=== PATIENT | female | born 1985 | race Hispanic/Latino ===

== ENCOUNTER 2017-09-29 16:07 | Outpatient (CLI) | payer BC, OTHER ==
--- NOTE | 2017-09-29 21:29 | ULT ---
ULTRASOUND OBSTETRICAL COMPLETE: 09/29/17 HISTORY: 32-year-old female in second trimester of . Evaluate anatomy, and determine size and d ates. FINDINGS: number: [place]. lie: Breech. Maternal cervix: At least 4 cm in length, and closed. Placenta: Posterior. No placenta previa. Amniotic fluid volume: DIVYA = 8.5 cm. heart rate: 145 bpm The following anatomy is visualized, with no evidence of anomalies: Head, lateral ventricles, cerebellum, nose and lips, spine, upper limbs, lower limbs, four chamber he art, umbilical cord, cord insertion, stomach, kidneys, and bladder. biometry: Head circumference (HC): 16.2 cm 19w 0d Biparietal diameter (BPD): 4.3 cm 18w 6d Abdominal circumference (AC): 12.7 cm 18w 2d Femur length (FL): 2.6 cm 18w 0d Average ultrasound age (AUA): 18w 4d Estimated date of delivery (LC): 02/26/18. Last menstrual period (LMP): 05/20/17. Gestational age by LMP: 18w 6d Estimated weight (EFW): 230 g +/- 34 g (0 lb. 8 oz. +/- 1 oz.) IMPRESSION: 1. Live second trimester intrauterine gestation. 2. Estimated gestational age of 18 weeks, 4 days. 3. Breech lie. 4. No anatomical abnormalities. nova [] POS: [facility]
== END 2017-09-29 16:08 | disposition home or self-care (01) ==
LOC: ULT 16:07
PROVIDERS: ATTEND Family Medicine
DX: Z34.82 Encounter for supervision of other normal pregnancy, second trimester (principal); Z3A.18 18 weeks gestation of pregnancy
CPT/HCPCS: 76805

== ENCOUNTER 2018-01-14 20:14 | Day surgery (SDC) | payer BC, OTHER ==
[2018-01-14 20:57] VITALS: BP 134/86; TEMP 98.8
--- NOTE | 2018-01-14 21:02 | PDOC.LDHP ---
Labor and Delivery H&P HPI: 32 y/o at 34w1d, patient of Dr. Brenda Rosario, presents with left sided back pain that started after going to eat dinner. Pain was constant, sharp, and has improved since arrival. More comfortable when lying on left side and when rubs her back. Denies abdominal pain, N/V, changes in bowel habits. Denies any VB, LOF, ctx, UTI sx, or PIH sx. +FM. ROS neg for HEENT, cv, pulm, gi, gu, neuro, psych, skin, musculoskeletal or constitutional symptoms other than mentioned above. Current gestational age (weeks): 34 Dating criteria: second trimester ultrasound OB History Details: 2 prior LTCS Current complications: hypertension (on Labetalol 100mg BID) Current medications: pre- vitamins, other (Labetalol 100mg BID, aspirin 81mg) Previous surgical history: low tranverse CS (x2), cholecystectomy Allergies/Adverse Reactions: Allergies Allergy/AdvReac Type Severity Reaction Status Date / Time No Known Allergies Allergy Verified 01/14/18 20:58 Social history: none - Physical Exam Vital signs reviewed and normal: yes General: NAD, resting Lungs: nonlabored breathing Abdomen: gravid (soft, NTTP. Left paraspinous muscles tight and mildly painful on palpation.) Extremeties: no edema FHT: category 1 (145, mod variability, + accels, no decels) - OB Labs Blood type: O RH: positive - Assessment 32 y/o at 34w1d with musculoskeletal discomforts of . status reassuring with reactive NST. - Plan -: D/c home with precautions. Advised to keep all appointments. Comfort measures discussed.
== END 2018-01-14 20:25 | disposition home or self-care (01) ==
LOC: L&D/OP 20:14
PROVIDERS: ATTEND Family Medicine
DX: O99.89 Other specified diseases and conditions complicating pregnancy, childbirth and the puerperium (principal); M54.9 Dorsalgia, unspecified; O16.3 Unspecified maternal hypertension, third trimester; Z3A.34 34 weeks gestation of pregnancy
CPT/HCPCS: 99282

== ENCOUNTER 2018-02-13 05:55 | Inpatient (IN) | payer BC, OTHER ==
[2018-02-13] MEDS ORDERED: CEFAZOLIN/Water 2 GM/20 ML SYRINGE SLOW IVP SCH (06:12)
[2018-02-13] MEDS ORDERED: Lactated Ringer's 1,000 ML IV SCH ×2 (06:12→11:32)
[2018-02-13] MEDS ORDERED: Promethazine HCl 25 MG/ML VIAL IM PRN ×2 (06:12→07:40)
[2018-02-13] MEDS ORDERED: Ondansetron HCl/PF 4 MG/2 ML Vial IVP PRN ×4 (06:12→11:32)
[2018-02-13] MEDS ORDERED: Bicitra 30 ML UDCUP PO SCH (06:12)
[2018-02-13 06:43] VITALS: BMI 31.6
[2018-02-13 06:44] LABS: Hemoglobin 14.2 g/dL (12.0-16.0); Mean Corpuscular HGB CONC 35.7 g/dL (32.0-36.0); Mean Corpuscular Volume 86.9 fL (78.0-98.0); Mean Platelet Volume 9.6 fL (7.4-10.4); Platelet Count 196 thou/uL (130-400); RBC Distribution Width 12.1 % (11.5-14.5); Red Blood Cell (RBC) Count 4.59 mill/uL (4.20-5.40)
[2018-02-13] MEDS ORDERED: Ondansetron HCl/PF 4 MG/2 ML Vial ONE (07:08)
[2018-02-13] MEDS ORDERED: Lidocaine 1% PF 5 ML VIAL ONE (07:08)
[2018-02-13] MEDS ORDERED: Oxytocin 10 UNITS/ML VIAL ONE (07:08)
[2018-02-13] MEDS ORDERED: Morphine PF 1 MG/ML SYR ONE (07:08)
[2018-02-13] MEDS ORDERED: PHENYLEPHRINE-NS 100 MCG/ML 10 ML SYRINGE ONE (07:08)
[2018-02-13] MEDS ORDERED: Bupivacaine 0.75% W/DEXTROSE 8.25% 2 ML AMP ONE (07:11)
[2018-02-13 07:20] LABS: HBSAg Index 0.22 S/CO (0-0.99); Hep B Surf Ag Non-Reactive S/CO (NonReactive); Syphilis Antibody Nonreactive (Nonreactive); Syphilis Antibody Index 0.03 S/CO (<1.00 Non-Reactive)
[2018-02-13] MEDS ORDERED: Eucerin (Mineral Oil/Petrolatum,White) 30 gm Jar TOP PRN (07:40)
[2018-02-13] MEDS ORDERED: diphenhydrAMINE 50 MG/ML VIAL IVP PRN (07:40)
[2018-02-13] MEDS ORDERED: Naloxone HCl 0.4 mg/ml Vial IV PRN (07:40)
[2018-02-13] MEDS ORDERED: Promethazine HCl 25 MG SUPP PR PRN (07:40)
[2018-02-13] MEDS ORDERED: Ketorolac Tromethamine 30 MG/ML VIAL IVP PRN (07:40)
[2018-02-13] MEDS ORDERED: HYDROmorphone 2 MG/ML VIAL SLOW IVP PRN (07:40)
[2018-02-13] MEDS ORDERED: Naloxone HCl 0.4 mg/ml Vial IVP PRN ×2 (07:40)
[2018-02-13] MEDS ORDERED: Meperidine HCl/PF 25 MG/ML VIAL SLOW IVP PRN (07:40)
[2018-02-13] MEDS ORDERED: Ketorolac Tromethamine 30 MG/ML VIAL IVP SCH (07:45)
[2018-02-13] MEDS ORDERED: Communication Order-Pharmacy FS SCH (07:45)
[2018-02-13 08:03] LABS: ALT (SGPT) 9 U/L (8-55); AST (SGOT) 18 U/L (5-34); Albumin 3.4 g/dL (3.5-5.0); Alkaline Phosphatase 185 U/L (40-150); Anion Gap 16 mmol/L (10-20); BUN (Urea Nitrogen) 10 mg/dL (7.0-18.7); Bilirubin, Total 0.4 mg/dL (0.2-1.2); Calc. Creatinine Clearance 156 mL/min (70-130); Calcium 9.2 mg/dL (7.8-10.44); Carbon Dioxide 16 mmol/L (22-29); Chloride 110 mmol/L (98-107); Estimated GFR-MDRD Greater than 90; Globulin 2.6 g/dL (2.4-3.5); Glucose 93 mg/dL (70-105); Potassium 3.9 mmol/L (3.5-5.1); Sodium 138 mmol/L (136-145)
--- NOTE | 2018-02-13 08:40 | OP ---
DATE OF PROCEDURE: 02/13/2018 PREOPERATIVE DIAGNOSES: Term intrauterine with previous section x2 and chronic hy pertension. POSTOPERATIVE DIAGNOSES: Term intrauterine with previous section x2 and chronic h ypertension, status post delivery. PROCEDURE: Repeat low transverse section. SURGEON: Brenda Rosario M.D. INTEGRATED CIRCUITS INSPECTOR: Ariel Rosario M.D. ANESTHESIA: Spinal anesthetic. COMPLICATIONS: None. PROCEDURE IN DETAIL: After adequate spinal anesthetic, the patient was placed in supine position. A Acosta catheter was placed in the bladder. Abdomen was prepped and draped in the usual sterile techn ique. A Pfannenstiel incision was made through the old scar. Subcutaneous tissue with sharp dissect ion, fascia with sharp dissection and peritoneum opened with sharp and blunt dissection. It was note d that the abdomen was filled with a gravid uterus. A large Juan O retractor was placed and a low transverse incision was made on the uterus. Membranes were ruptured. Clear fluid was encountered an d a viable female was delivered from vertex presentation without difficulty. Infant breathed and cried spontaneously. Noted there was cord around the neck x1. After approximately 30 seconds th e umbilical cord was clamped. Infant had been dried and bulb suction and was handed to care of the n eonatology team. Cord blood was obtained. The placenta was delivered manually, appeared intact. A wet lap was used to wipe clean the uterus and ring forceps grasped edges of the hysterotomy, which wa s then closed in continuous fashion using 0 Monocryl. It was noted that there were no bleeders and h emostasis was adequate. Inspection of the gutters again without bleeding. The Jaun O retractor wa s removed and the peritoneum was then closed in continuous fashion using 2-0 plain suture, and the fa scia was closed in continuous fashion using 0 Vicryl suture. Sponge and instrument counts were corre ct. A few bleeders were cauterized on the subcutaneous tissue and this was reapproximated with 2-0 p stacey suture in continuous fashion. The skin was then closed using patti. Again, sponge, and instr ument counts were correct. There was minimal bleeding. The patient tolerated the procedure well and went to the recovery room in good condition with quantitative blood loss at 255. The baby is a viab le female, weight 6 pounds 6 ounces, Apgars 8 at 1 minute, 9 at 5 minutes, in level 1 nursery in good condition.
[2018-02-13] MEDS ORDERED: NS / Oxytocin 40 units/1000ml 0 ML ONE (08:59)
[2018-02-13] MEDS ORDERED: NS / Oxytocin 40 units/1000ml 1,000 ML ONE (09:00)
[2018-02-13] MEDS ORDERED: Lanolin Ointment 7 GM TUBE TOP PRN (11:32)
[2018-02-13] MEDS ORDERED: diphenhydrAMINE 25 MG CAP PO PRN (11:32)
[2018-02-13] MEDS ORDERED: Acetaminophen 325 MG TAB PO PRN (11:32)
[2018-02-13] MEDS ORDERED: Acetaminophen/Codeine 30-300mg Tablet PO PRN (20:00)
[2018-02-13] MEDS ORDERED: HYDROcodone/Acetaminophen 5/325 mg Tablet PO PRN (20:00)
[2018-02-13] MEDS: Docusate Calcium (SURFAK) 240 MG CAP PO SCH (20:25)
[2018-02-13] MEDS: Simethicone Chewable 80 MG TAB PO PRN (20:25)
[2018-02-13] MEDS: Labetalol 100 MG TAB PO SCH (20:25)
[2018-02-14 05:36] LABS: Hemoglobin 13.3 g/dL (12.0-16.0); Mean Corpuscular HGB CONC 34.9 g/dL (32.0-36.0); Mean Corpuscular Hemoglobin 30.9 pg (27.0-31.0); Mean Corpuscular Volume 88.4 fL (78.0-98.0); Mean Platelet Volume 9.3 fL (7.4-10.4); Platelet Count 153 thou/uL (130-400); RBC Distribution Width 12.2 % (11.5-14.5); Red Blood Cell (RBC) Count 4.31 mill/uL (4.20-5.40); White Blood Cell (WBC) Count 9.6 thou/uL (4.8-10.8)
[2018-02-14] MEDS: Ibuprofen 800 MG TAB PO SCH ×3 (05:53→20:56)
[2018-02-14] MEDS: Labetalol 100 MG TAB PO SCH ×2 (08:09→20:56)
[2018-02-14] MEDS: Prenatal Vitamin 1 TAB PO SCH (08:09)
[2018-02-14] MEDS: Docusate Calcium (SURFAK) 240 MG CAP PO SCH ×2 (08:10→20:56)
[2018-02-14] MEDS: Simethicone Chewable 80 MG TAB PO PRN (20:57)
[2018-02-15] MEDS: Ibuprofen 800 MG TAB PO SCH ×2 (05:16→14:06)
[2018-02-15] MEDS: Docusate Calcium (SURFAK) 240 MG CAP PO SCH (08:29)
[2018-02-15] MEDS: Labetalol 100 MG TAB PO SCH (08:29)
[2018-02-15] MEDS: Prenatal Vitamin 1 TAB PO SCH (08:30)
[2018-02-15 09:01] VITALS: BP 134/82; TEMP 98.8
== END 2018-02-15 20:30 | disposition home or self-care (01) | DRG 765 ==
LOC: L&D 05:55 → 3SW 10:41 → EDSTATUS 02-24 12:17
PROVIDERS: ADMIT Family Medicine; ATTEND Family Medicine
PROC: 10D00Z1 Extraction of Products of Conception, Low, Open Approach (ICD-10-PCS; principal; 2018-02-13)
PROC: 4A0HXCZ Measurement of Products of Conception, Cardiac Rate, External Approach (ICD-10-PCS; 2018-02-13)
DX: O34.211 Maternal care for low transverse scar from previous cesarean delivery (principal); O10.02 Pre-existing essential hypertension complicating childbirth; Z3A.38 38 weeks gestation of pregnancy; Z37.0 Single live birth
CPT/HCPCS: 36415; 51702; 80053; 85027; 86780; 86850; 86900; 86901; 87340; J2001; J2274; J2405; J2590; J3490

== ENCOUNTER 2023-11-28 15:05 | Emergency (ER) | payer BC ==
[~2023-11-28 15:05] MED LIST: Iopamidol-370 76% 500 ML MDV (1 ML CHARGE) ONE
[2023-11-28 15:50] LABS: #Basophils 0.03 10x3/uL (0.0-0.2); %Basophils 0.4 % (0.0-1.0); %Eosinophils 0.4 % (0.0-10.0); %Lymphocytes 19.3 % (21.0-51.0); %Monocytes 6.7 % (0.0-10.0); Hematocrit 45.1 % (36.0-47.0); Hemoglobin 16.1 g/dL (12.0-16.0); Mean Corpuscular HGB CONC 35.7 g/dL (32.0-36.0); Mean Corpuscular Hemoglobin 32.5 pg (27.0-31.0); Mean Corpuscular Volume 91.1 fL (78.0-98.0); Mean Platelet Volume 10.3 fL (7.4-10.4); Platelet Count 257 10x3/uL (130-400); RBC Distribution Width 12.2 % (11.5-14.5); Red Blood Cell (RBC) Count 4.95 mill/uL (4.20-5.40)
[2023-11-28 15:55] LABS: BHCG - Serum Negative (NEGATIVE); Pregs Control Background? CLEAR/WHITE (CLR/WHITE); Pregs Control Bar Appear? YES (CONTROL BAR)
[2023-11-28 15:59] LABS: ALT (SGPT) 25 U/L (8-55); AST (SGOT) 22 U/L (5-34); Albumin 4.3 g/dL (3.5-5.0); Alkaline Phosphatase 99 U/L (40-110); Anion Gap 16 mmol/L (10-20); BUN (Urea Nitrogen) 10 mg/dL (7.0-18.7); Bilirubin, Total 0.9 mg/dL (0.2-1.2); Calc. Creatinine Clearance 0 mL/min (70-130); Calcium 9.7 mg/dL (7.8-10.44); Carbon Dioxide 23 mmol/L (22-29); Chloride 105 mmol/L (98-107); Estimated GFR 89; Globulin 3.4 g/dL (2.4-3.5); Glucose 154 mg/dL (70-105); Potassium 3.6 mmol/L (3.5-5.1); Protein, Total 7.7 g/dL (6.0-8.3); Sodium 140 mmol/L (136-145)
[2023-11-28 16:01] LABS: INR-International Normal Ratio 0.9; PTT 26.2 sec (22.9-36.1); Prothrombin Time 12.1 sec (12.0-14.7)
[2023-11-28 16:04] LABS: Troponin I Less than 0.010 ng/mL (< 0.028)
[2023-11-28] MEDS ORDERED: Aspirin 325 MG TAB ONE (16:46)
[2023-11-28] MEDS ORDERED: Clopidogrel Bisulfate 300 MG TAB ONE (16:47)
== END 2023-11-28 17:54 | disposition short-term general hospital (02) ==
LOC: ERS 15:05
DX: I66.02 Occlusion and stenosis of left middle cerebral artery (principal)
CPT/HCPCS: 36416; 70496; 70498; 80053; 84484; 84703; 85025; 85610; 85730; 93005; 99292; Q9967

== ENCOUNTER 2024-01-06 07:00 | Outpatient (CLI) | payer BC | END 2024-01-06 07:01 | disposition home or self-care (01) | LOC: BICULT 07:00 | PROVIDERS: ATTEND Family Medicine | DX: E04.1 Nontoxic single thyroid nodule (principal); E03.4 Atrophy of thyroid (acquired) | CPT/HCPCS: 76536 ==

== ENCOUNTER 2024-07-16 09:28 | Emergency (ER) | payer BC ==
[2024-07-16 10:34] LABS: #Basophils Less than 0.03 10x3/uL (0.0-0.2); %Basophils 0.3 % (0.0-1.0); %Eosinophils 1.3 % (0.0-10.0); %Lymphocytes 14.9 % (21.0-51.0); %Monocytes 6.6 % (0.0-10.0); %Neutrophils 76.1 % (42.0-75.0); Hematocrit 44.4 % (36.0-47.0); Mean Corpuscular Hemoglobin 32.1 pg (27.0-31.0); Mean Corpuscular Volume 89.2 fL (78.0-98.0); Mean Platelet Volume 10.8 fL (7.4-10.4); Platelet Count 335 10x3/uL (130-400); RBC Distribution Width 11.9 % (11.5-14.5); Red Blood Cell (RBC) Count 4.98 mill/uL (4.20-5.40)
[2024-07-16 10:58] LABS: PTT 29.3 sec (22.9-36.1); Prothrombin Time 12.7 sec (12.0-14.7)
[2024-07-16 11:08] LABS: Albumin 4.5 g/dL (3.5-5.0); Anion Gap 13 mmol/L (10-20); BUN (Urea Nitrogen) 11 mg/dL (7.0-18.7); Calc. Creatinine Clearance 0 mL/min (70-130); Calcium 10.2 mg/dL (7.8-10.44); Carbon Dioxide 27 mmol/L (22-29); Chloride 104 mmol/L (98-107); Estimated GFR 113; Globulin 4.1 g/dL (2.4-3.5); Glucose 95 mg/dL (70-105); Protein, Total 8.6 g/dL (6.0-8.3); Sodium 140 mmol/L (136-145)
[2024-07-16] MEDS ORDERED: Iopamidol-370 76% 500 ML MDV (1 ML CHARGE) ONE (11:08)
[2024-07-16 11:09] LABS: ALT (SGPT) 15 U/L (8-55); AST (SGOT) 20 U/L (5-34); Alkaline Phosphatase 104 U/L (40-110)
== END 2024-07-16 18:22 | disposition short-term general hospital (02) ==
LOC: ERS 09:28
DX: I72.4 Aneurysm of artery of lower extremity (principal); F17.210 Nicotine dependence, cigarettes, uncomplicated
CPT/HCPCS: 72191; 80053; 85025; 85610; 85730; Q9967